=== PATIENT | female | born 1985 | race Caucasian/White ===

== ENCOUNTER 2017-01-26 03:45 | Emergency (ER) | payer MEDICAID ==
[~2017-01-26] VITALS: Ht 160 cm; Wt 53.5 kg
[2017-01-26] MEDS: KETOROLAC TROMETHAMINE 15 MG INJ IV ONE (04:14)
[2017-01-26] MEDS ORDERED: KETOROLAC TROMETHAMINE 30 MG INJ ONE (04:15)
[2017-01-26 04:31] LABS: *URINE HCG, QUAL NEGATIVE (NEGATIVE)
[2017-01-26 04:35] LABS: BASOPHILS # (AUTO) 0.1 K/uL (0.0-8.0); EOSINOPHILS # (AUTO) 0.2 K/uL (0.0-0.7); EOSINOPHILS % (AUTO) 2.4 % (0.0-7.0); HEMATOCRIT 39.9 % (31.2-41.9); LYMPHOCYTES # (AUTO) 3.1 K/uL (20.0-40.0); MEAN CORPUSCULAR HEMOGLOBIN 23.1 uug (24.7-32.8); MEAN CORPUSCULAR HGB CONC 33 g/dL (32.3-35.6); MEAN CORPUSCULAR VOLUME 70.9 fL (75.5-95.3); MONOCYTES # (AUTO) 0.7 K/uL (2.0-10.0); MONOCYTES % (AUTO) 11.3 % (0.0-11.0); NEUTROPHILS # (AUTO) 2.5 K/uL (1.8-8.9); NEUTROPHILS % (AUTO) 37.3 % (38.5-71.5); PLATELET COUNT (AUTO) 249 K/uL (179-408); RED BLOOD CELL COUNT(AUTO) 5.63 MIL/uL (3.63-4.92); RED CELL DISTRIBUTION WIDTH 13.9 % (12.3-17.7); WHITE BLOOD COUNT (AUTO) 6.6 K/uL (3.8-11.8)
[2017-01-26 04:39] LABS: ALANINE AMINOTRANSFERASE 57 U/L (14-59); ALBUMIN 3.8 g/dL (3.4-5.0); ALKALINE PHOSPHATASE 65 U/L (50-136); ASPARTATE AMINOTRANSFERASE 26 U/L (15-37); BILIRUBIN,DIRECT 0.1 mg/dL (0.0-0.2); BILIRUBIN,TOTAL 0.4 mg/dL (0.2-1.0); CALCIUM 9.8 mg/dL (8.5-10.1); CARBON DIOXIDE 27 mmol/L (21-32); CHLORIDE 106 mmol/L (98-107); GFR > 130 mL/min (>60); GLUCOSE 103 mg/dL (74-106); POTASSIUM 4.1 mmol/L (3.5-5.1); SODIUM SERUM 142 mmol/L (136-145); TOTAL PROTEIN, SERUM 6.8 g/dL (6.4-8.2); UREA NITROGEN, BLOOD 11 mg/dL (7-18)
[2017-01-26 04:52] LABS: CREATININE 0.5 mg/dL (0.6-1.3)
--- NOTE | 2017-01-26 05:05 | NUR ---
Patient discharged to home in stable conditon. Written and verbal after care instructions given. Patient verbalizes understanding of instructions.
== END 2017-01-26 05:07 | disposition home or self-care (01) ==
LOC: ER 03:53
DX: R07.89 Other chest pain (principal)
CPT/HCPCS: 36415; 70030-TC; 71010; 84703; 85025; 85730; 93005; A4663; J1885

== ENCOUNTER 2017-10-06 11:53 | Emergency (ER) | payer MEDICAID | END 2017-10-06 12:25 | disposition home or self-care (01) | LOC: ER 11:54 | DX: Z53.21 Procedure and treatment not carried out due to patient leaving prior to being seen by health care provider (principal) ==

== ENCOUNTER 2017-12-07 19:20 | Emergency (ER) | payer BC, MEDICAID ==
[~2017-12-07] VITALS: Ht 160 cm; Wt 59.0 kg
--- NOTE | 2017-12-07 20:36 | NUR ---
pt aaox3. pt ambulated into ED with steady gait w/ c/o hives to bilateral wrists d/t allergic reaction. pt in no acute distress. respirations are even and unlabored. pt able to speak in clear and complete sentences and make needs known.
[2017-12-07] MEDS ORDERED: predniSONE 50 MG TABLET ONE (22:10)
[2017-12-07] MEDS ORDERED: predniSONE 50 MG TABLET PO ONE (22:15)
--- NOTE | 2017-12-07 22:25 | NUR ---
Patient discharged to home in stable conditon. Written and verbal after care instructions given with rx Patient verbalizes understanding of instructions. pt ambulated out of ED with steady and stable gait in no acute distress.
== END 2017-12-07 22:26 | disposition home or self-care (01) ==
LOC: ER 19:23
DX: I77.6 Arteritis, unspecified (principal); Z91.013 Allergy to seafood
CPT/HCPCS: A4663; J7512

== ENCOUNTER 2019-09-08 13:07 | Emergency (ER) | payer BC, OTHER ==
[~2019-09-08] VITALS: Ht 157.5 cm; Wt 67.1 kg
[2019-09-08] MEDS ORDERED: CETI10CA PO (13:24)
--- NOTE | 2019-09-08 13:30 | NUR ---
Patient ambulated with stable gait. A/Ox4. Speech clear, speaks in complete sentences. No acute neuro deficits. Patient came for c/o chest discomfort, palpitations for about 2 weeks now. She also states numbness/tingling in her left extremity. Denies any n/v/d. Patient in bed at lowest position, sr upx2, call light within reach. Fall precautions implemented per protocol. Patient accompanied by at bedside.
--- NOTE | 2019-09-08 13:37 | NUR ---
ERMD at bedside for MSE
[2019-09-08] MEDS ORDERED: IV NORMAL SALINE 1000 ML BAG IV ONE (13:45)
[2019-09-08 14:06] LABS: BASOPHILS # (AUTO) 0.1 K/uL (0.0-8.0); BASOPHILS % (AUTO) 1.3 % (0.0-2.0); EOSINOPHILS # (AUTO) 0.1 K/uL (0.0-0.7); EOSINOPHILS % (AUTO) 1.2 % (0.0-7.0); HEMATOCRIT 40.6 % (31.2-41.9); HEMOGLOBIN 13.1 g/dL (10.9-14.3); LYMPHOCYTES # (AUTO) 1.8 K/uL (20.0-40.0); LYMPHOCYTES % (AUTO) 30.8 % (20.5-51.5); MEAN CORPUSCULAR HEMOGLOBIN 23.7 uug (24.7-32.8); MEAN CORPUSCULAR HGB CONC 32 g/dL (32.3-35.6); MEAN CORPUSCULAR VOLUME 73.2 fL (75.5-95.3); MONOCYTES # (AUTO) 0.5 K/uL (2.0-10.0); MONOCYTES % (AUTO) 9.2 % (0.0-11.0); NEUTROPHILS # (AUTO) 3.4 K/uL (1.8-8.9); NEUTROPHILS % (AUTO) 57.5 % (38.5-71.5); PLATELET COUNT (AUTO) 262 K/uL (179-408); RED BLOOD CELL COUNT(AUTO) 5.54 MIL/uL (3.63-4.92); WHITE BLOOD COUNT (AUTO) 5.9 K/uL (3.8-11.8)
[2019-09-08 14:14] LABS: CREATININE 0.8 mg/dL (0.6-1.3); POTASSIUM 3.3 mmol/L (3.5-5.1)
[2019-09-08 14:26] LABS: BILIRUBIN,DIRECT 0.2 mg/dL (0.0-0.2); BILIRUBIN,TOTAL 0.9 mg/dL (0.2-1.0); TOTAL PROTEIN, SERUM 7.5 g/dL (6.4-8.2)
[2019-09-08 14:32] LABS: LYMPHOCYTES % (MANUAL) 38 % (20-40); MONOCYTES % (MANUAL) 3 % (2-10); NEUTROPHILS % (MANUAL) 59 % (42-75)
[2019-09-08 14:53] LABS: THYROID STIMULATING HORMONE 0.915 mIU/mL (0.358-3.740)
[2019-09-08 15:15] VITALS: BP 129/83
--- NOTE | 2019-09-08 15:15 | NUR ---
Patient discharged to home in stable conditon. Written and verbal after care instructions given. Patient verbalizes understanding of instructions. Patient ambulated with stable gait.
== END 2019-09-08 15:16 | disposition home or self-care (01) ==
LOC: ER 13:14
DX: R00.2 Palpitations (principal); Z91.013 Allergy to seafood; Z79.899 Other long term (current) drug therapy
CPT/HCPCS: 36415; 70030-TC; 71045; 84443; 85025; 85730; 93005; A4663; J7030

== ENCOUNTER 2019-10-23 18:08 | Emergency (ER) | payer OTHER ==
[~2019-10-23] VITALS: Ht 157.5 cm; Wt 65.8 kg
[~2019-10-23 18:08] MED LIST: CETI10CA PO
[2019-10-23 18:47] LABS: *BILIRUBIN,URIN NEGATIVE (NEGATIVE); *BLOOD, URINE NEGATIVE (NEGATIVE); *CLARITY,URINE CLEAR (CLEAR); *COLOR,URINE LIGHT YELLOW (YELLOW); *KETONES,URINE NEGATIVE (NEGATIVE); *UROBILINOGEN,URINE 0.2 E.U./dl (NORMAL); LEUKOCYTE ESTERASE ,URINE NEGATIVE (NEGATIVE); NITRITE, URINE NEGATIVE (NEGATIVE); PH,URINE 8.5 (5.0-8.0); UGLUCOSE NEGATIVE (NEGATIVE)
[2019-10-23 18:48] LABS: *URINE HCG, QUAL NEGATIVE (NEGATIVE)
[2019-10-23] MEDS ORDERED: IV NS 1000 ML 1,000 ML IV ONE (19:00)
[2019-10-23] MEDS ORDERED: KETOROLAC TROMETHAMINE 30 MG INJ IVP ONE (19:00)
[2019-10-23] MEDS ORDERED: ONDANSETRON 4 MG/2 ML VIAL IV ONE (19:00)
[2019-10-23 19:01] LABS: BASOPHILS # (AUTO) 0.1 K/uL (0.0-8.0); EOSINOPHILS # (AUTO) 0.2 K/uL (0.0-0.7); HEMATOCRIT 36.6 % (31.2-41.9); HEMOGLOBIN 11.9 g/dL (10.9-14.3); LYMPHOCYTES # (AUTO) 2.3 K/uL (20.0-40.0); LYMPHOCYTES % (AUTO) 31.9 % (20.5-51.5); MEAN CORPUSCULAR HEMOGLOBIN 23.6 uug (24.7-32.8); MEAN CORPUSCULAR HGB CONC 32 g/dL (32.3-35.6); MEAN CORPUSCULAR VOLUME 72.7 fL (75.5-95.3); MONOCYTES # (AUTO) 0.6 K/uL (2.0-10.0); MONOCYTES % (AUTO) 8.6 % (0.0-11.0); NEUTROPHILS % (AUTO) 55.5 % (38.5-71.5); PLATELET COUNT (AUTO) 244 K/uL (179-408); RED BLOOD CELL COUNT(AUTO) 5.04 MIL/uL (3.63-4.92); WHITE BLOOD COUNT (AUTO) 7.2 K/uL (3.8-11.8)
[2019-10-23 19:08] LABS: CREATININE 0.6 mg/dL (0.6-1.3); POTASSIUM 3.7 mmol/L (3.5-5.1)
[2019-10-23 19:12] LABS: BILIRUBIN,DIRECT 0.1 mg/dL (0.0-0.2); BILIRUBIN,TOTAL 0.3 mg/dL (0.2-1.0); TOTAL PROTEIN, SERUM 7.1 g/dL (6.4-8.2)
[2019-10-23] MEDS ORDERED: KETOROLAC TROMETHAMINE 30 MG INJ ONE (19:15)
--- NOTE | 2019-10-23 19:17 | NUR ---
patient taken to CT scan in stable condition via gurney
--- NOTE | 2019-10-23 19:27 | NUR ---
Tiarra uastin in [facility] - 10/23/19 at 1934 by DIRK PATIENT TAKEN TO CT SCAN IN STABLE CONDITION VIA PERNELL
--- NOTE | 2019-10-23 19:34 | NUR ---
patient back from CT scan in stable condition
--- NOTE | 2019-10-23 20:31 | NUR ---
Patient discharged to home in stable conditon. Written and verbal after care instructions given. Patient verbalizes understanding of instructions. IV removed. Catheter intact and site benign. Pressure and 4x4 gauze applied to site. No bleeding noted. patient ambulating with steady gait
[2019-10-23 20:45] VITALS: BP 121/69
== END 2019-10-23 20:31 | disposition home or self-care (01) ==
LOC: ER 18:08
DX: R10.11 Right upper quadrant pain (principal); Z91.013 Allergy to seafood; Z79.899 Other long term (current) drug therapy
CPT/HCPCS: 36415; 74176; 76705; 80048; 80076; 81001; 83690; 84703; 85025; 96374; 99284; J1885; A4663

== ENCOUNTER 2020-02-10 03:48 | Emergency (ER) | payer OTHER ==
[~2020-02-10] VITALS: Ht 157.5 cm; Wt 68.0 kg
[2020-02-10] MEDS ORDERED: KETOROLAC TROMETHAMINE 60 MG INJ IM ONE ×2 (04:00→04:30)
[2020-02-10 04:15] LABS: *BILIRUBIN,URIN NEGATIVE (NEGATIVE); *BLOOD, URINE 2+ (NEGATIVE); *CLARITY,URINE CLOUDY (CLEAR); *COLOR,URINE YELLOW (YELLOW); *KETONES,URINE NEGATIVE (NEGATIVE); *UROBILINOGEN,URINE 0.2 E.U./dl (NORMAL); LEUKOCYTE ESTERASE ,URINE 3+ (NEGATIVE); NITRITE, URINE NEGATIVE (NEGATIVE); UGLUCOSE NEGATIVE (NEGATIVE)
[2020-02-10 04:24] LABS: BACTERIA,URINE MODERATE /HPF (NONE SEEN); RBC,URINE TNTC /HPF (0-3); SQUAMOUS EPITHELIAL CELL,UR MODERATE /HPF (NONE SEEN); WBC,URINE TNTC /HPF (0-3)
[2020-02-10 04:25] LABS: *URINE HCG, QUAL NEGATIVE (NEGATIVE)
--- NOTE | 2020-02-10 04:37 | NUR ---
Patient discharged to home in stable condition. Written and verbal after care instructions given. Patient verbalizes understanding of instructions. Stressed follow up or return to ER for worsening s/s.
[2020-02-10 04:38] VITALS: BP 125/75
== END 2020-02-10 04:42 | disposition home or self-care (01) ==
LOC: ER 03:55
DX: N30.91 Cystitis, unspecified with hematuria (principal); B96.89 Other specified bacterial agents as the cause of diseases classified elsewhere
CPT/HCPCS: 81001; 84703; 87086; 96372; 99283; J1885; A4663